=== PATIENT | female | born 1965 | race African-American/Black ===

== ENCOUNTER 2017-11-07 16:00 | Emergency (ER) | payer OTHER ==
[~2017-11-07] VITALS: Ht 162.6 cm; Wt 82.6 kg
[2017-11-07 16:10] VITALS: BP 130/72
[2017-11-07 17:30] LABS: INFLUENZA A PATIENT NEGATIVE (NEGATIVE); INFLUENZA B PATIENT POSITIVE (NEGATIVE)
[2017-11-07] MEDS ORDERED: HYDROcodone/APAP 5/325MG 1 TAB TABLET PO ONE (18:00)
[2017-11-07] MEDS ORDERED: IPRATRPIUM/ALBUTEROL 0.5/2.5MG 3 ML NEBU. NEB ONE (18:00)
[2017-11-07] MEDS ORDERED: ONDANSETRON ODT 4 MG TAB.RAPDIS PO ONE (18:00)
[2017-11-07] MEDS ORDERED: ONDA4TAB10 SL (18:09)
[2017-11-07] MEDS ORDERED: HYDR115S2 PO (18:09)
[2017-11-07] MEDS ORDERED: ALBU8.5H8 INH (18:09)
--- NOTE | 2017-11-07 18:09 | PHYS DOC ---
Past History Past Medical History: Hypertension Past Surgical History: Tubal ligation, Other Alcohol Use: None Drug Use: None Adult General Chief Complaint Chief Complaint: FLU SYMPTOM [facility] HPI 52-year-old female patient complaining of flulike symptoms for the last 5 days nasal congestion, cough, shortness of breath, diarrhea, nausea, subjective fever and generalized weakness. Patient had sick contacts at work. Review of Systems Review of Systems Constitutional: Reports fever and chills] Eyes: Denies change in visual acuity, redness, or eye pain [] HENT: Nasal congestion and sore throat Respiratory: Cough and shortness of breath[] Cardiovascular: No additional information not addressed in HPI [] GI: Denies abdominal pain, nausea, vomiting, bloody stools,report diarrhea [] : Denies dysuria or hematuria [] Musculoskeletal: Denies back pain or joint pain [] Integument: Denies rash or skin lesions [] Neurologic: Denies headache, focal weakness or sensory changes [] Endocrine: Denies polyuria or polydipsia [] All other systems were reviewed and found to be within normal limits, except as documented in this note. Current Medications Current Medications Current Medications Medications (Trade) Dose Ordered Sig/Giorgi Start Time Stop Time Status Last Admin Dose Admin Acetaminophen/ Hydrocodone Bitart (Lortab 5/325) 1 tab 1X ONCE 11/07/17 18:00 2 18:01 UNV Albuterol/ Ipratropium (Duoneb) 3 ml 1X ONCE 11/07/17 18:00 2 18:01 UNV Ondansetron HCl (Zofran Odt) 4 mg 1X ONCE 11/07/17 18:00 2 18:01 UNV Physical Exam Physical Exam Constitutional: Well developed, well nourished, mild distress, non-toxic appearance. [] HENT: Normocephalic, atraumatic, bilateral external ears normal, oropharynx moist, pharyngeal erythema, no oral exudates, nose normal. [] Eyes: PERRLA, EOMI, conjunctiva normal, no discharge. [] Neck: Normal range of motion, no tenderness, supple, no stridor. [] Cardiovascular:Heart rate regular rhythm, no murmur [] Lungs & Thorax: Bilateral breath sounds clear to auscultation [] Abdomen: Bowel sounds normal, soft, no tenderness, no masses, no pulsatile masses. [] Skin: Warm, dry, no erythema, no rash. [] Back: No tenderness, no CVA tenderness. [] Extremities: No tenderness, no cyanosis, no clubbing, ROM intact, no edema. [] Neurologic: Alert and oriented X 3, normal motor function, normal sensory function, no focal deficits noted. [] Psychologic: Affect normal, judgement normal, mood normal. [] Current Patient Data Lab Results Laboratory Tests Test 11/07/17 16:22 Influenza Type A (Rapid) Negative (NEGATIVE) Influenza Type B (Rapid) Positive (NEGATIVE) EKG EKG [] Radiology/Procedures Radiology/Procedures [] Course & Med Decision Making Course & Med Decision Making Pertinent Labs studies reviewed. (See chart for details) I've spoken with the patient and/or caregivers. I've explained the patient's condition, diagnosis and treatment plan based on information available to me at this time. I've answered the patient's and/or caregivers questions and addressed any concerns. The patient and/or caregivers have a good understanding the patient's diagnosis, condition and treatment plan as can be expected at this point. Vital signs have been stabilized. The patient's condition is stable for discharge from the emergency department. The patient will pursue further outpatient evaluation with her primary care provider or other designated consulting physician as outlined in the discharge instructions. Patient and/or caregivers are agreeable to this plan of care and follow-up instructions have been explained in detail. The patient and/or caregivers have received these instructions in written format and expressed understanding of these discharge instructions. The patient and her caregivers are aware that if any significant change in condition or worsening of symptoms should prompt him to immediately return to this of the closest emergency department. If an emergent department is not readily available I would encourage him to call 911. Oliva Disclaimer Dragon Disclaimer This electronic medical record was generated, in whole or in part, using a voice recognition dictation system. Departure Departure: Impression: Primary Impression: Influenza B Disposition: HOME, SELF-CARE (At 1807) Condition: IMPROVED Referrals: PCP,UNKNOWN (PCP) Patient Instructions: Influenza A (H1N1) Additional Instructions: Drink plenty of liquids Follow-up with your primary care physician in 3-5 days Return to ER if not getting better Scripts Albuterol Sulfate (PROAIR HFA INHALER) 8.5 Gm Hfa.aer.ad 2 PUFF INH PRN Q6HRS Y for SHORTNESS OF BREATH, #1 INHALER 0 Refills Prov: OZZIE MORALES MD 11/07/17 Hydrocodone/Chlorphen P-Stirex (Tussionex Pennkinetic Susp) 115 Ml Tammy.er.12h 5 ML PO BID, #120 ML Prov: OZZIE MORALES MD 11/07/17 Ondansetron (ZOFRAN ODT) 4 Mg Tab.rapdis 1 TAB SL Q8HRS, #15 TAB Prov: OZZIE MORALES MD 11/07/17 OZZIE MORALES MD Nov 07, 2017 18:09
== END 2017-11-07 18:48 | disposition home or self-care (01) ==
LOC: ER 16:00
DX: J10.1 Influenza due to other identified influenza virus with other respiratory manifestations (principal); I10 Essential (primary) hypertension
CPT/HCPCS: 87804; 94640; 99284; J7620; Q0162

== ENCOUNTER 2017-11-08 19:38 | Emergency (ER) | payer OTHER ==
[~2017-11-08] VITALS: Ht 162.6 cm; Wt 82.6 kg
[~2017-11-08 19:38] MED LIST: ALBU8.5H8 INH; HYDR115S2 PO; ONDA4TAB10 SL
[2017-11-08 20:00] VITALS: BP 112/61
[2017-11-08] MEDS ORDERED: ACETAMINOPHEN 500 MG TABLET PO ONE (20:30)
--- NOTE | 2017-11-08 20:51 | PHYS DOC ---
Past History Past Medical History: Other Past Surgical History: Other Alcohol Use: None Drug Use: None Adult General Chief Complaint Chief Complaint: NAUSEA/VOMITING/DIARRHEA HPI HPI 52-year-old female diagnosed with influenza yesterday by nasal swab here in our emergency department. She now returns emergency department because her symptoms did not resolve completely. Patient has some nausea vomiting and diarrhea. Denies abdominal pain. No chest pain or shortness of breath. No near syncope. Review of Systems Review of Systems Constitutional: Denies fever or chills [] Eyes: Denies change in visual acuity, redness, or eye pain [] HENT: Denies nasal congestion or sore throat [] Respiratory: Denies cough or shortness of breath [] Cardiovascular: No additional information not addressed in HPI [] GI: Denies abdominal pain, nausea, vomiting, bloody stools or diarrhea [] : Denies dysuria or hematuria [] Musculoskeletal: Denies back pain or joint pain [] Integument: Denies rash or skin lesions [] Neurologic: Denies headache, focal weakness or sensory changes [] Endocrine: Denies polyuria or polydipsia [] All other systems were reviewed and found to be within normal limits, except as documented in this note. Current Medications Current Medications Current Medications Medications (Trade) Dose Ordered Sig/Giorgi Start Time Stop Time Status Last Admin Dose Admin Acetaminophen (Tylenol) 1,000 mg 1X ONCE 11/08/17 20:30 11/08/17 20:32 DC 11/08/17 20:30 1,000 MG Allergies Allergies Allergies Coded Allergies Type Severity Reaction Last Updated Verified No Known Drug Allergies 11/07/17 No Physical Exam Physical Exam Well-appearing patient no acute distress completely benign exam Constitutional: Well developed, well nourished, no acute distress, non-toxic appearance. [] HENT: Normocephalic, atraumatic, bilateral external ears normal, oropharynx moist, no oral exudates, nose normal. [] Eyes: PERRLA, EOMI, conjunctiva normal, no discharge. [] Neck: Normal range of motion, no tenderness, supple, no stridor. [] Cardiovascular:Heart rate regular rhythm, no murmur [] Lungs & Thorax: Bilateral breath sounds clear to auscultation [] Abdomen: Bowel sounds normal, soft, no tenderness, no masses, no pulsatile masses. [] Skin: Warm, dry, no erythema, no rash. [] Back: No tenderness, no CVA tenderness. [] Extremities: No tenderness, no cyanosis, no clubbing, ROM intact, no edema. [] Neurologic: Alert and oriented X 3, normal motor function, normal sensory function, no focal deficits noted. [] Psychologic: Affect normal, judgement normal, mood normal. [] EKG EKG [] Radiology/Procedures Radiology/Procedures [] Course & Med Decision Making Course & Med Decision Making Pertinent Labs and Imaging studies reviewed. (See chart for details) []Signs and symptoms consistent with nausea vomiting and diarrhea in this case secondary to influenza. Patient has no tachycardia. She is well-appearing with mucous membranes moist. Patient stable and no further workup or treatment indicated in the ED. She is weren't take Motrin and Tylenol as needed as well as Zofran which was previously prescribed. No further workup or treatment indicated at this time patient agrees with outpatient follow-up and strict return precautions given Dragon Disclaimer Dragon Disclaimer This electronic medical record was generated, in whole or in part, using a voice recognition dictation system. Departure Departure: Impression: Primary Impression: Viral syndrome Additional Impression: Diarrhea Disposition: HOME, SELF-CARE Condition: GOOD Referrals: PCP,UNKNOWN (PCP) Patient Instructions: Diarrhea, Viral Syndrome Additional Instructions: As previously diagnosed by nasal swab, you have the flu. Rest and drink plenty of fluids. Use Zofran as previously prescribed as needed for nausea. Take ibuprofen 800 mg every 6 hours and Tylenol every 4 hours as needed for aches pains or fevers. Follow-up with your doctor in 1-2 days and return immediately for new severe worsening symptoms. Be aware that people commonly feel very sick , fatigued, and achy when they have the flu. Motrin and Tylenol will help with the symptoms. Make a special effort to keep yourself very well hydrated. Be aware that fluid is very contagious so use handwashing precautions, contact precautions, and cover any cough is diligently as possible. Problem Qualifiers CUONG TILLMAN MD Nov 08, 2017 20:51
== END 2017-11-08 20:00 | disposition home or self-care (01) ==
LOC: ER 19:38
DX: B34.9 Viral infection, unspecified (principal)
CPT/HCPCS: 99282

== ENCOUNTER 2020-08-05 08:39 | Emergency (ER) | payer OTHER ==
[~2020-08-05] VITALS: Ht 162.6 cm; Wt 84.1 kg
[~2020-08-05 08:39] MED LIST changes: +ALBU2.5V8 INH; -ALBU8.5H8 INH
[2020-08-05] MEDS ORDERED: ACETAMINOPHEN 325 MG TABLET PO ONE (09:15)
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
[2020-08-05 10:50] VITALS: BP 153/85
== END 2020-08-05 10:50 | disposition home or self-care (01) ==
LOC: ER 08:39
DX: S13.4XXA Sprain of ligaments of cervical spine, initial encounter (principal); V43.52XA Car driver injured in collision with other type car in traffic accident, initial encounter; Y93.I9 Activity, other involving external motion; Y92.488 Other paved roadways as the place of occurrence of the external cause; Y99.8 Other external cause status
CPT/HCPCS: 70450; 71045; 72125; 99285-25

== ENCOUNTER → 2021-08-01 | Outpatient (CLI) | payer OTHER ==
--- NOTE | 2021-08-13 17:12 | RAD ---
Bilateral digital screening 2-D and 3-D (digital breast tomosynthesis) mammogram: Reason for examination: Routine screening. Comparison: None available. Interpretation was made with the benefit of CAD. FINDINGS: Breast density: Category B. There are scattered areas of fibroglandular density. No suspicious breast mass, malignant appearing calcifications, or architectural distortion is seen. IMPRESSION: No evidence of malignancy. Assessment: BI-RADS 1. Negative. Recommendation: Routine screening mammograms. The patient will receive a letter with the results in the mail. Patient information will be entered i nto the mammography reminder system with a target recall date for the next mammogram. A reminder gladys er will be generated. Electronically signed by: Yenifer Herndon MD (08/13/2021 5:10 PM) [id number]
== END ==
LOC: MAMMO 09:25
PROVIDERS: ATTEND Family Medicine
DX: Z12.31 Encounter for screening mammogram for malignant neoplasm of breast (principal)
CPT/HCPCS: 77063; 77067